=== PATIENT | female | born 1995 | race Hispanic/Latino ===

== ENCOUNTER 2024-08-30 00:09 | Emergency (ER) | payer OTHER, SELFPAY ==
[2024-08-30 00:10] VITALS: BP 161/74; PULSE 128; RESP 17; TEMP 37; BMI 43.1
--- NOTE | 2024-08-30 00:50 | EDS_ITS ---
HPI History of Present Illness Chief Complaint: Chest Pain Narrative Narrative: Chief complaint and HPI: Chest pain. 29-year-old female with history of hypertension not on medication presents for evaluation of chest pain. Chest pain started at 12 AM while at rest. Lasted a couple minutes and then stopped. States she may have had some mild shortness of breath. Denying chest pain currently. Patient does endorse taking a THC edible this evening. She has never had an edible in the past. She states she is very nervous. Received the edible from a friend. Denies possibility of due to IUD. Denies any fever, chills, abdominal pain, nausea, vomiting, dysuria. Denies any other illicit drug use. Review of systems: See HPI Medications: As listed on the chart Allergies: As listed on the chart PFSH: Per chart Vital signs: As listed on the chart. Reviewed. Physical exam: Gen: A&O x3, NAD Head: Normocephalic, atraumatic Eyes: No sclera icterus, conjunctiva clear, EOMI, PERRL ENT: Moist mucous membranes Neck: Trachea midline, No JVD CV: Tachycardic, regular rhythm, no murmurs, no peripheral edema Resp: Lungs CTA BL, no w/r/c GI: Abd soft, non-distended, non-tender, no r/r/g Musc: Full ROM, no deformity Skin: Warm, dry Neuro: Alert, oriented, grossly intact, sensation intact Psych: Cooperative, anxious [facility] Medical History (Updated 08/30/24 @ 04:[address] Benjamin Domingo, DO) Anxiety HTN (hypertension) Home Medications ?Medication ?Instructions ?Recorded ?Last Taken ?Type cephalexin 500 mg capsule 500 mg PO Q12 5 days #10 CAPSULES 08/30/24 Unknown Rx fluoxetine 20 mg capsule (Prozac) 25 mg PO DAILY 08/30/24 Unknown History Allergy/AdvReac Type Severity Reaction Status Date / Time No Known Allergies Allergy Verified 08/30/24 00:15 Social History Smoking Status: Never smoker EXAM Physical Exam Const Vital Signs: 08/30/24 00:10 08/30/24 00:15 08/30/24 01:10 Temperature 98.6 F Temperature Source Oral Pulse Rate 128 H 112 H Respiratory Rate 17 19 H Respiratory Effort Normal Non-Labored Blood Pressure 161/74 H 137/74 H Blood Pressure Mean 103 95 Pulse Ox Oxygen Delivery Method Room Air Room Air 08/30/24 02:00 08/30/24 03:00 08/30/24 04:00 Temperature Temperature Source Pulse Rate 108 H 111 H 105 H Respiratory Rate 20 H 13 14 Respiratory Effort Blood Pressure 134/75 H 134/79 H 133/67 H Blood Pressure Mean 94 97 89 Pulse Ox 97 95 Oxygen Delivery Method Room Air Room Air Room Air 08/30/24 05:00 Temperature 98.6 F Temperature Source Pulse Rate 109 H Respiratory Rate 16 Respiratory Effort Blood Pressure 133/67 H Blood Pressure Mean 89 Pulse Ox 97 Oxygen Delivery Method MDM MDM MDM Narrative Medical decision making narrative: 29-year-old female with history of hypertension not on medication presents for evaluation of chest pain and mild shortness of breath. Both resolved. Patient does endorse having a edible THC gummy this evening. She is not anxious. On presentation, patient is tachycardic into the 120s. I suspect that this is secondary to anxiety however cannot rule out other pathology. Differential diagnosis includes but is not limited to THC intoxication, electrolyte abnormality, electrolyte abnormality, UTI. Suspect less likely ACS and PE. Cardiac workup ordered including UA and urine drug screen. CBC without leukocytosis or anemia. BMP consistent with mild dehydration with mild renal insufficiency, hyponatremia, hypokalemia. Hospital is on a I believe fluid restriction. Patient is able to eat and drink. P.o. hydration appropriate. Troponin unremarkable. D-dimer elevated at 0.95. Given her tachycardia, mild shortness of breath but cannot fully rule out PE. Patient was educated on this. CTA chest ordered. UA positive for UTI. Urine culture ordered. UA positive for THC. CTA chest negative for PE. On reevaluation, patient is asymptomatic. Her heart rate has improved. Patient was educated on the all her results and confirmed understanding of the plan to discharge home. She was educated that she needs to drink plenty of fluids over the next 48 hours. She will need to obtain [id number] potassium pills. Patient will be written Keflex for UTI. She was educated on refraining from THC use in the future and confirmed understanding of the plan. Follow-up with PCP. EKG: Interpreted by me/EM physician: EKG shows sinus tachycardia with a heart rate of 124. Nonspecific ST changes which I suspect are secondary to rate. Diagnostic: Interpreted by me/EM physician: Chest x-ray without pneumonia, effusion, cardiomegaly, pneumothorax Impression: 1. Noncardiac chest pain 2. UTI 3. THC abuse 4. Dehydration Lab Data Labs: Laboratory Results - last 24 hr 08/30/24 08/30/24 00:13 01:10 WBC 8.2 RBC 4.56 Hgb 14.1 Hct 40.2 MCV 88.2 MCH 30.9 MCHC 35.1 RDW Std Deviation 38.6 RDW Coeff of Daniel 12.0 Plt Count 409 MPV 10.7 Immature Gran % (Auto) 0.200 Neut % (Auto) 51.7 Lymph % (Auto) 40.2 [place] % (Auto) 6.0 Eos % (Auto) 1.3 Baso % (Auto) 0.6 Absolute Neuts (auto) 4.2 Absolute Lymphs (auto) 3.28 Nucleated RBC % 0 D-Dimer Quant (PE/DVT) 0.95 H* Sodium 135 L Potassium 3.2 L Chloride 103 Carbon Dioxide 24.0 Anion Gap 8 BUN 15 Creatinine 1.09 H Estim Creat Clear Calc 83.54 Est GFR (MDRD) Af Amer 76 Est GFR (MDRD) Non-Af 63 BUN/Creatinine Ratio 13.8 Glucose 133 H Calcium 8.9 Troponin I High Sens 6 Urine Color Yellow Urine Clarity Clear Urine pH 6.5 Ur Specific Aragon 1.015 Urine Protein 15 H Urine Glucose (UA) Normal Urine Ketones Negative Urine Occult Blood Negative Urine Nitrite Positive H Urine Bilirubin Negative Urine Urobilinogen 1 H Ur Leukocyte Esterase 100 H Urine RBC 0-5 SEEN Urine WBC 10-25 SEEN Ur Squamous Epith Cells 5-10 SEEN Urine Bacteria 4+ Urine Mucus 0 SEEN Urine Test Negative Urine Opiates Screen NEGATIVE Urine Methadone Screen NEGATIVE Ur Barbiturates Screen NEGATIVE Ur Phencyclidine Scrn NEGATIVE Ur Amphetamines Screen NEGATIVE MDMA (Ecstasy) Screen NEGATIVE U Benzodiazepines Scrn NEGATIVE Urine Cocaine Screen NEGATIVE U Cannabinoids Screen POSITIVE H Ur Drug Screen Comment Radiography Diagnostic Testing: Clinical Impression(s) from Imaging Studies Chest CTA 08/30/24 02:26 IMPRESSION: 1. No pulmonary embolism. 2. No evidence of cardiopulmonary disease. Electronically Signed: Derick Perez DO at 4:10 EDT Reading Location ID and State: [facility] / [place] Tel , Service support , Discharge Plan Triage Chief Complaint: Chest Pain ED Provider: Benjamin Domingo Dx/Rx/DC Orders Clinical Impression: Cannabis abuse, Chest pain of unknown etiology, UTI (urinary tract infection) Instructions: Chest Pain [facility] Prescriptions: New cephalexin 500 mg capsule 500 mg PO Q12 5 Days Qty: 10 0RF No Action fluoxetine [Prozac] 20 mg capsule 25 mg PO DAILY Primary Care Provider: Care Physician,No Primary Referrals: Kimani Alcocer, [Med Staff - [employer]] - [facility] Doctor,Out of [Non-Staff] - Activity Restrictions/Additional Instructions: Follow-up with your primary care physician. If you do not have a PCP follow-up with the 1 provided to you. Refrain from marijuana abuse. Increase hydration. Print Language: Sinhala Disposition Disposition: Home, Self Care Discharge Date/Time: 08/30/24 05:05
--- NOTE | 2024-08-30 00:57 | EKG12_ITS ---
Test Reason : CP Blood Pressure : / mmHG Vent. Rate : 124 BPM Atrial Rate : 125 BPM P-R Int : 154 ms QRS Dur : 082 ms QT Int : 318 ms P-R-T Axes : 056 081 020 degrees QTc Int : 456 ms Sinus tachycardia Nonspecific ST abnormality Abnormal ECG Confirmed by SUMA LANG, RUBÉN ([id number]), design editor JOSE PATHAK ([id number]) on 09/02/2024 10:09:17 AM Referred By: Confirmed By:RUBÉN MOISE MD
[2024-08-30 01:08] LABS: Absolute Lymphocyte Count 3.28 X10^3/uL (0.83-4.51); Absolute Neutrophil Count 4.2 X10^3/uL (2.0-7.7); Basophil# 0.05 X10^3/uL; Basophil% 0.6 % (0-1); Eosinophil# 0.11 X10^3/uL; Eosinophils% 1.3 % (0-5); Hematocrit 40.2 % (37-47); Hemoglobin 14.1 g/dL (12.0-15.0); Lymphocyte # 3.28 X10^3/ul (0.83-4.51); Lymphocyte % 40.2 % (19-41); Mean Corp Hgb Conc 35.1 g/dL (32-36); Mean Corpuscular Hgb 30.9 pg (27.0-32.0); Mean Corpuscular Volume 88.2 fL (81-99); Mean Platelet Vol. 10.7 fl (6.2-12.0); Monocyte# 0.49 X10^3/uL; NRBC Flagged by Analyzer 0 % (0-5); Neutrophil % 51.7 % (47-70); Platelet Count 409 K/mm3 (150-450); RBC Distribution Width SD 38.6 fl (35.1-43.9); Red Blood Count 4.56 M/mm3 (4.2-5.4); White Blood Count 8.2 K/mm3 (4.4-11.0)
[2024-08-30 01:10] VITALS: BP 137/74; PULSE 112; RESP 19
--- NOTE | 2024-08-30 01:10 | RAD_ITS ---
INDICATION: CHEST PAIN EXAMINATION/TECHNIQUE: X-RAY - XR Chest 1 View COMPARISON: None. FINDINGS: LINES/DEVICES: None. LUNGS: No consolidation or evidence of an effusion. No evidence of edema or a pneumothorax. MEDIASTINUM AND CARDIOVASCULAR STRUCTURES: Cardiac silhouette is normal in size and contour. Mediastinum is unremarkable. BONES AND SOFT TISSUES: No acute abnormality. RAD/Chest 1 View (Portable) IMPRESSION: No evidence of cardiopulmonary disease. Electronically Signed: Derick Perez DO at 2:02 EDT ,
[2024-08-30 01:16] LABS: Mucous, Urine 0 SEEN /hpf (<or=2+)
[2024-08-30 01:21] LABS: Glucose, Dipstick Normal (Normal); Ketone-Dipstick Negative (Negative); Leukocyte Esterase-Dipstick 100 /ul (Negative); Nitrite-Dipstick Positive (Negative); Occult Blood-Urine Negative /ul (Negative); Protein-Dipstick 15 mg/dl (Negative); Specific Gravity, Urine 1.015 (1.002-1.030); Urine Bilirubin Dipstick Negative (Negative); Urine Urobilinogen 1 mg/dl (Normal); Urine pH 6.5 (5.0 - 8.0)
[2024-08-30 01:22] LABS: Internal QC Validated? YES +Cl - CLEAR BKGD; Pregnancy, Urine Negative Negative; Record Kit Lot#,Urine Preg 765943
[2024-08-30 01:23] LABS: Color, Urine Yellow (Yellow); Urine Clarity Clear (Clear)
[2024-08-30 01:28] LABS: Bacteria 4+ /hpf (None Seen); Red Blood Cells-Urine 0-5 SEEN /hpf (0-5); Squamous Epithelial Cells - UA 5-10 SEEN /hpf (5-10); White Blood Cells 10-25 SEEN /hpf (0-5)
[2024-08-30 01:34] LABS: Anion Gap 8 (5-15); BUN 15 mg/dL (7-18); BUN/Creat Ratio 13.8 RATIO (10-20); Calcium,Total 8.9 mg/dL (8.5-10.1); Chloride 103 mmol/L (98-107); Creatinine, Serum 1.09 mg/dL (0.55-1.02); EST Glomerular Filtration Rate 63 mL/min (>60); Est Glom Filt Rate - Afr Amer 76 mL/min (>60); Estimated Creatinine Clearance 83.54 ml/min; Glucose 133 mg/dL (74-106); Potassium 3.2 mmol/L (3.5-5.1); Sodium Level 135 mmol/L (136-145); Troponin-I HS 6 pg/mL (3.0-54.0)
[2024-08-30 01:43] LABS: Amphetamine Urine VISTA NEGATIVE (<1000 ng/mL); Barbiturate Urine VISTA NEGATIVE (< 200 ng/mL); Benzodiazepine Urine VISTA NEGATIVE (< 200 ng/mL); Cocaine Urine VISTA NEGATIVE (< 300 ng/mL); Ecstacy Urine VISTA NEGATIVE (< 500 ng/mL); Methadone Urine VISTA NEGATIVE (< 300 ng/mL); PCP Urine VISTA NEGATIVE (< 25 ng/mL); THC Urine VISTA POSITIVE (< 50 ng/mL); Vista UDS pH Range 7
[2024-08-30 01:56] LABS: D-Dimer Quantitative (DVT/PE) 0.95 FEU/ug/m (0.27-0.49)
[2024-08-30 02:00] VITALS: BP 134/75; PULSE 108; RESP 20
--- NOTE | 2024-08-30 02:26 | CT_ITS ---
INDICATION: Assess for PE EXAMINATION: CT CHEST WITH CONTRAST - CTA Chest WO/W Contrast Injection TECHNIQUE: Helically acquired images were obtained of the chest following IV contrast timed in the pulmonary arterial phase with sagittal and coronal reconstructed images. Post-processing of the angiographic images was performed with multiplanar reformation and 3D reconstruction. Individualized dose optimization techniques were used for this CT. IV contrast dosage and agent: 100 mL of Isovue-[id number]. COMPARISON: None. FINDINGS: LUNGS, PLEURA AND LARGE AIRWAYS: No consolidation or edema. No pulmonary nodule. No pleural effusion. No pneumothorax. THYROID: Unremarkable. HEART AND PERICARDIUM: No evidence of coronary artery calcification. No pericardial effusion. No evidence of right heart strain. Right ventricle to left ventricle ratio measures less than 1. MEDIASTINUM AND ALL: No mediastinal or hilar adenopathy. Esophagus is unremarkable. No hiatal hernia. VESSELS: No pulmonary embolism. No thoracic aortic aneurysm. UPPER ABDOMEN: The visualized upper abdomen is unremarkable. BONES: No acute abnormality. CT/CTA Chest W/WO Contrast IMPRESSION: 1. No pulmonary embolism. 2. No evidence of cardiopulmonary disease. Electronically Signed: Derick Perez DO at 4:10 EDT ,
[2024-08-30 03:00] VITALS: BP 134/79; PULSE 111; RESP 13; O2SAT 97
[2024-08-30 04:00] VITALS: BP 133/67; PULSE 105; RESP 14; O2SAT 95
[2024-08-30 05:00] VITALS: BP 133/67; PULSE 109; RESP 16; TEMP 37; O2SAT 97
== END 2024-08-30 05:05 | disposition home or self-care (01) ==
PROVIDERS: Emergency Provider Surgery; Visit Provider Surgery
DX: R07.9 Chest pain, unspecified (principal); N39.0 Urinary tract infection, site not specified; F12.10 Cannabis abuse, uncomplicated; R06.02 Shortness of breath; I10 Essential (primary) hypertension; E86.0 Dehydration; F41.9 Anxiety disorder, unspecified; R94.31 Abnormal electrocardiogram [ECG] [EKG]
CPT/HCPCS: 71045; 71275; 80048; 80307; 81001; 81025; 84484; 85025; 85379; 87086; 87088; 87186; 93005; 99283; Q9967